=== PATIENT | female | born 1940 | race Asian ===

== ENCOUNTER 2020-05-11 14:00 | Emergency (ER) | payer OTHER, BC ==
[~2020-05-11] VITALS: Ht 165.1 cm; Wt 89.4 kg
[2020-05-11 14:00] VITALS: BP 150/71; TEMP 98.2
[2020-05-11 14:54] LABS: PLATELET COUNT 252 K/uL (152-353)
[2020-05-11 15:07] LABS: POTASSIUM 3.4 mmol/L (3.6-5.2)
[2020-05-11] MEDS ORDERED: ASPI81TA4 PO (16:47)
[2020-05-11] MEDS ORDERED: TYLENOL325 MG PO (16:47)
[2020-05-11] MEDS ORDERED: LIPITOR80 MG PO (16:48)
[2020-05-11] MEDS ORDERED: ESCI20TA PO (16:49)
[2020-05-11] MEDS ORDERED: LISI20TA11 PO (16:49)
[2020-05-11] MEDS ORDERED: SEROQUEL XR50 MG PO (16:50)
[2020-05-11] MEDS ORDERED: PANTOPRAZOLE 40MG TA PO (16:50)
== END 2020-05-11 15:35 | disposition other institution (70) ==
LOC: ED 14:09
PROVIDERS: Family Medicine
DX: R46.89 Other symptoms and signs involving appearance and behavior (principal); I48.91 Unspecified atrial fibrillation; Z11.52 Encounter for screening for COVID-19; Z04.6 Encounter for general psychiatric examination, requested by authority
CPT/HCPCS: 80053; 85027; 87635; 93005; 99283; 99284; U0003